=== PATIENT | female | born 1960 | race African-American/Black ===

== ENCOUNTER 2018-01-15 11:03 | Inpatient (IN) | payer OTHER ==
[2018-01-15 13:09] VITALS: BMI 21.4
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
[2018-01-15] MEDS ORDERED: MAGNESIUM CITRATE 300 ML BOTTLE PO PRN (16:52)
[2018-01-15] MEDS ORDERED: IBUPROFEN 400 MG TABLET (FP) PO PRN (16:52)
[2018-01-15] MEDS ORDERED: MENTHOL/PHENOL 1 EACH UD MM PRN (16:52)
[2018-01-15] MEDS ORDERED: MAGNESIUM HYDROX 2400MG/30ML ORAL SUSPENSION 30 ML CUP PO PRN (16:52)
[2018-01-15] MEDS ORDERED: MAG HYDROX/AL HYDROX/SIMETH 30 ML UNIT-DOSE CUP PO PRN (16:52)
[2018-01-15] MEDS ORDERED: LOPERAMIDE HCL 2 MG CAPSULE PO PRN (16:52)
[2018-01-15] MEDS ORDERED: guaiFENesin/D-METHORPHAN HB 10 ML UNIT-DOSE CUPS PO PRN (16:52)
[2018-01-15] MEDS ORDERED: chlordiazePOXIDE HCL 25 MG CAPSULE PO PRN (16:52)
[2018-01-15] MEDS ORDERED: ACETAMINOPHEN 325 MG TABLET (FP) PO PRN (16:52)
[2018-01-15] MEDS ORDERED: P-EPHED 60MG/TRIPROLIDI 2.5MG TABLET PO PRN (16:52)
[2018-01-15] MEDS ORDERED: hydrOXYzine PAMOATE 50 MG CAPSULE (FP) PO PRN (16:52)
[2018-01-15] MEDS ORDERED: chlordiazePOXIDE HCL 25 MG CAPSULE PO ONE (17:15)
[2018-01-15] MEDS ORDERED: MELATONIN 5 MG TABLETS PO PRN (22:00)
[2018-01-15] MEDS: chlordiazePOXIDE HCL 25 MG CAPSULE PO SCH (22:16)
[2018-01-15] MEDS: THIAMINE HCL 100 MG TABLET (FP) PO SCH (22:16)
[2018-01-16] MEDS: chlordiazePOXIDE HCL 25 MG CAPSULE PO SCH ×4 (06:09→22:24)
--- NOTE | 2018-01-16 08:04 | CONSULT ---
[facility] Psychiatric Consult - Data Date of interview: 01/16/18 Admission source: [facility] Identifying data: This is a 57 years old female, single mother of thre, living with family, unemployed , on PA, with no psychiatric hospitalization , with history of nicotine, alcohol, crack / cocaine dependence, MMTP 180mg per day, with alcohol withdrawal symptoms is here seeking detox. Substance Abuse History: Smoking history: Current every day smoker. Have you smoked in the past 12 months: Yes. Aproximately how many cigarettes per day: 4. Hx Chewing Tobacco Use: No. Initiated information on smoking cessation: Yes. 'Breaking Loose' booklet given: 01/15/18. - Substance & Tx. History. Hx Alcohol Use: Yes. Hx Substance Use: Yes. Substance Use Type: Alcohol, Cocaine. Hx Substance Use Treatment: Yes (Last detox [address] [facility]). - Substances Abused. Crack. Route: Smoking. Frequency: Daily. Amount used: $80. Age of first use: 32. Date of Last Use: 01/14/18. Alcohol-beer. Route: Oral. Frequency: Daily. Amount used: 5 x (22 oz.). Age of first use: 20. Date of Last Use: 01/14/18 Medical History: Denies significant medical issues Psychiatric History: Patient reports anxiety and depression history, reports taking prior to admission Seroquel 200mg po qhs for anxiety and insomnia. Denies suicidal, homicidial history Physical/Sexual Abuse/Trauma History: Denies Additional Comment: Seroquel 200mg po qhs Mental Status Exam - Mental Status Exam Alert and Oriented to: Person Cognitive Function: Fair Patient Appearance: Unkempt Mood: Apprehensive Affect: Mood Congruent Patient Behavior: Cooperative Speech Pattern: Appropriate Voice Loudness: Mildly Soft/Quiet Thought Process: Circumstantial, Goal Oriented Thought Disorder: Being Controlled Hallucinations: Denies Suicidal Ideation: Denies Homicidal Ideation: Denies Insight/Judgement: Fair Sleep: Difficulty falling asleep Appetite: Weight loss Muscle strength/Tone: Mild Hypertonicity Gait/Station: Shuffling Additional Comments: Seroquel 200mg po qhs Psychiatric Findings - Problem List ([place] 1, 2,3) (1) Drug-induced mood disorder Current Visit: Yes Status: Acute (2) Alcohol dependence with withdrawal Current Visit: Yes Status: Acute Qualifiers: Complication of substance-induced condition: uncomplicated Qualified Code(s ): F10.230 - Alcohol dependence with withdrawal, uncomplicated (3) Cocaine dependence Current Visit: Yes Status: Acute Qualifiers: Substance use status: uncomplicated Qualified Code(s): F14.20 - Cocaine dependence, uncomplicated (4) Weight loss, unintentional Current Visit: Yes Status: Acute (5) Opioid dependence on agonist therapy Current Visit: Yes Status: Chronic Comment: MMTP : [place] on methadone 180 mg, dose pending verification - Initial Treatment Plan Initial Treatment Plan: Seroquel 200mg po qhs
[2018-01-16] MEDS ORDERED: METHADONE HCL 10 MG TABLET PO SCH (09:00)
[2018-01-16] MEDS ORDERED: METHADONE HCL 40 MG DISPERSABLE TABLET ONE (10:01)
[2018-01-16] MEDS ORDERED: METHADONE HCL 10 MG TABLET ONE (10:01)
--- NOTE | 2018-01-16 10:30 | EKG ---
Test Reason : Blood Pressure : / mmHG Vent. Rate : 066 BPM Atrial Rate : 066 BPM P-R Int : 138 ms QRS Dur : 076 ms QT Int : 446 ms P-R-T Axes : 077 061 056 degrees QTc Int : 467 ms NORMAL SINUS RHYTHM NORMAL ECG NO PREVIOUS ECGS AVAILABLE Confirmed by PATRICIA GAYTAN MD ([id number]) on 01/16/2018 10:30:05 AM Referred By: Confirmed By:PATRICIA GAYTAN MD
[2018-01-16 10:47] LABS: HEMATOCRIT 37.7 % (32.4-45.2); HEMOGLOBIN 12.3 GM/dL (10.7-15.3); MCH 29.2 pg (25.7-33.7); MCHC 32.6 g/dl (32.0-36.0); MEAN CELL VOLUME 89.5 fl (80-96); MEAN PLT VOLUME 9.9 fl (7.5-11.1); PLATELET COUNT 191 K/MM3 (134-434); RBC 4.21 M/mm3 (3.60-5.2); RDW 14.9 % (11.6-15.6); WHITE BLOOD COUNT 6.2 K/mm3 (4.0-10.0)
[2018-01-16] MEDS: PRENATAL VITAMINS W/ FOLIC ACID TABLET (FP) PO SCH (10:47)
[2018-01-16] MEDS: METHADONE 160 MG, METHADONE 20 MG PO SCH (10:47)
[2018-01-16] MEDS: NICOTINE 14 MG/24 HOURS TOPICAL PATCH TD SCH (10:52)
[2018-01-16] MEDS: NICOTINE POLACRILEX 2 MG GUM BC PRN (10:53)
[2018-01-16 10:55] LABS: URINE APPEARANCE CLEAR; URINE BILIRUBIN NEGATIVE (<2.0 mg/dL); URINE COLOR YELLOW; URINE GLUCOSE (UA) NEGATIVE (NEGATIVE); URINE KETONE NEGATIVE (NEGATIVE); URINE NITRITE NEGATIVE (NEGATIVE); URINE PROTEIN NEGATIVE (NEGATIVE); URINE UROBILINOGEN NEGATIVE mg/dL (0.2-1.0)
[2018-01-16 11:20] LABS: URINE LEUK ESTERASE 1+ (NEGATIVE)
[2018-01-16 11:30] LABS: EPI CELLS FEW /HPF (FEW); URINE MUCUS RARE
[2018-01-16 11:31] LABS: CHLORIDE 104 mmol/L (98-107); POTASSIUM 3.9 mmol/L (3.5-5.1); SODIUM 142 mmol/L (136-145)
[2018-01-16 12:08] LABS: ALBUMIN 3.4 g/dl (3.4-5.0); ALK PHOS 107 U/L (45-117); ANION GAP 10 (8-16); BILIRUBIN,TOTAL 0.3 mg/dL (0.2-1.0); BLOOD UREA NITROGEN 25 mg/dL (7-18); CALCIUM 9.1 mg/dL (8.5-10.1); CO2 28 mmol/L (21-32); GLUCOSE,RANDOM 85 mg/dL (74-106); SGOT/AST 20 U/L (15-37); SGPT/ALT 20 U/L (12-78); TOT PROT 6.5 g/dl (6.4-8.2)
--- NOTE | 2018-01-16 15:19 | PN ---
S CIWA - CIWA Score Nausea/Vomitin Muscle Tremors: 3 Anxiety: 2 Agitation: 2 Paroxysmal Sweats: 1-Minimal Palms Moist Orientation: 0-Oriented Tacttile Disturbances: 1-Very Mild Itch/Numbness Auditory Disturbances: 1-Very Mild Visual Disturbances: 0-None Headache: 2-Mild CIWA-Ar Total Score: 15 S Progress Note (SOAP) Subjective: alert,irritable,anxious,interrupted sleep,tremor Objective: 01/16/18 15:17 Vital Signs Temperature 97.2 F L 01/16/18 09:42 Pulse Rate 65 01/16/18 09:42 Respiratory Rate 18 01/16/18 09:42 Blood Pressure 113/75 01/16/18 09:42 O2 Sat by Pulse Oximetry (%) 01/16/18 15:17 nsr,normal ecg qt/qtc 446/467 Laboratory Last Values WBC 6.2 K/mm3 (4.0-10.0) 01/16/18 07:30 RBC 4.21 M/mm3 (3.60-5.2) 01/16/18 07:30 Hgb 12.3 GM/dL (10.7-15.3) 01/16/18 07:30 Hct 37.7 % (32.4-45.2) 01/16/18 07:30 MCV 89.5 fl (80-96) 01/16/18 07:30 MCH 29.2 pg (25.7-33.7) 01/16/18 07:30 MCHC 32.6 g/dl (32.0-36.0) 01/16/18 07:30 RDW 14.9 % (11.6-15.6) 01/16/18 07:30 Plt Count 191 K/MM3 (134-434) 01/16/18 07:30 MPV 9.9 fl (7.5-11.1) 01/16/18 07:30 Sodium 142 mmol/L (136-145) 01/16/18 07:30 Potassium 3.9 mmol/L (3.5-5.1) 01/16/18 07:30 Chloride 104 mmol/L (98-107) 01/16/18 07:30 Carbon Dioxide 28 mmol/L (21-32) 01/16/18 07:30 Anion Gap 10 (8-16) 01/16/18 07:30 BUN 25 mg/dL (7-18) H 01/16/18 07:30 Creatinine 1.0 mg/dL (0.55-1.02) 01/16/18 07:30 Creat Clearance w eGFR 57.56 (>60) 01/16/18 07:30 Random Glucose 85 mg/dL (74-106) 01/16/18 07:30 Calcium 9.1 mg/dL (8.5-10.1) 01/16/18 07:30 Total Bilirubin 0.3 mg/dL (0.2-1.0) 01/16/18 07:30 AST 20 U/L (15-37) 01/16/18 07:30 ALT 20 U/L (12-78) 01/16/18 07:30 Alkaline Phosphatase 107 U/L (45-117) 01/16/18 07:30 Total Protein 6.5 g/dl (6.4-8.2) 01/16/18 07:30 Albumin 3.4 g/dl (3.4-5.0) 01/16/18 07:30 Urine Color Yellow 01/16/18 08:00 Urine Appearance Clear 01/16/18 08:00 Urine pH 5.0 (5.0-8.0) 01/16/18 08:00 Ur Specific [place] 1.025 (1.001-1.035) 01/16/18 08:00 Urine Protein Negative (NEGATIVE) 01/16/18 08:00 Urine Glucose (UA) Negative (NEGATIVE) 01/16/18 08:00 Urine Ketones Negative (NEGATIVE) 01/16/18 08:00 Urine Blood Negative (NEGATIVE) 01/16/18 08:00 Urine Nitrite Negative (NEGATIVE) 01/16/18 08:00 Urine Bilirubin Negative (<2.0 mg/dL) 01/16/18 08:00 Urine Urobilinogen Negative mg/dL (0.2-1.0) 01/16/18 08:00 Ur Leukocyte Esterase 1+ (NEGATIVE) H 01/16/18 08:00 Urine WBC (Auto) <1 /hpf (3-5) 01/16/18 08:00 Urine RBC (Auto) 8 /hpf (0-3) 01/16/18 08:00 Ur Epithelial Cells Few /HPF (FEW) 01/16/18 08:00 Urine Mucus Rare 01/16/18 08:00 Assessment: 01/16/18 15:19 withdrawal symptom Plan: continue detox
[2018-01-16] MEDS: QUEtiapine FUMARATE 200 MG TABLET PO SCH (22:23)
[2018-01-16] MEDS: THIAMINE HCL 100 MG TABLET (FP) PO SCH (22:23)
[2018-01-17] MEDS ORDERED: METHADONE HCL 40 MG DISPERSABLE TABLET ONE (04:59)
[2018-01-17] MEDS ORDERED: METHADONE HCL 10 MG TABLET ONE (05:00)
[2018-01-17] MEDS: chlordiazePOXIDE HCL 25 MG CAPSULE PO SCH ×3 (06:00→17:43)
[2018-01-17] MEDS: METHADONE 160 MG, METHADONE 20 MG PO SCH (06:00)
[2018-01-17] MEDS: PRENATAL VITAMINS W/ FOLIC ACID TABLET (FP) PO SCH (10:36)
[2018-01-17] MEDS: NICOTINE 14 MG/24 HOURS TOPICAL PATCH TD SCH (10:37)
--- NOTE | 2018-01-17 15:47 | PN ---
S CIWA - CIWA Score Nausea/Vomitin-Mild Nausea/No Vomiting Muscle Tremors: None Anxiety: 0-No Anxiety, at Ease Agitation: 0-Normal Activity Paroxysmal Sweats: No Perspiration Orientation: 0-Oriented Tacttile Disturbances: 0-None Auditory Disturbances: 0-None Visual Disturbances: 0-None Headache: 0-None Present CIWA-Ar Total Score: 1 [facility] Progress Note (SOAP) Subjective: pt sleeping without complaints Objective: 01/17/18 15:47 Vital Signs - 24 hr 01/16/18 01/16/18 01/17/18 19:03 22:41 03:30 Temperature 97.9 F 97.7 F Pulse Rate 71 78 Respiratory 18 16 18 Rate Blood Pressure 116/71 119/88 01/17/18 01/17/18 01/17/18 07:31 10:46 14:06 Temperature 97.3 F L 97.5 F L 97.5 F L Pulse Rate 81 85 85 Respiratory 18 16 18 Rate Blood Pressure 108/75 154/71 118/69 Breath Alcohol Content Breath Alcohol Content 0 Laboratory Tests 01/16/18 01/16/18 01/16/18 07:30 07:30 07:30 WBC 6.2 RBC 4.21 Hgb 12.3 Hct 37.7 MCV 89.5 MCH 29.2 MCHC 32.6 RDW 14.9 Plt Count 191 MPV 9.9 Sodium 142 Potassium 3.9 Chloride 104 Carbon Dioxide 28 Anion Gap 10 BUN 25 H Creatinine 1.0 Creat Clearance w eGFR 57.56 Random Glucose 85 Calcium 9.1 Total Bilirubin 0.3 AST 20 ALT 20 Alkaline Phosphatase 107 Total Protein 6.5 Albumin 3.4 Urine Color Urine Appearance Urine pH Ur Specific [place] Urine Protein Urine Glucose (UA) Urine Ketones Urine Blood Urine Nitrite Urine Bilirubin Urine Urobilinogen Ur Leukocyte Esterase Urine WBC (Auto) Urine RBC (Auto) Ur Epithelial Cells Urine Mucus RPR Titer Nonreactive 01/16/18 08:00 WBC RBC Hgb Hct MCV MCH MCHC RDW Plt Count MPV Sodium Potassium Chloride Carbon Dioxide Anion Gap BUN Creatinine Creat Clearance w eGFR Random Glucose Calcium Total Bilirubin AST ALT Alkaline Phosphatase Total Protein Albumin Urine Color Yellow Urine Appearance Clear Urine pH 5.0 Ur Specific [place] 1.025 Urine Protein Negative Urine Glucose (UA) Negative Urine Ketones Negative Urine Blood Negative Urine Nitrite Negative Urine Bilirubin Negative Urine Urobilinogen Negative Ur Leukocyte Esterase 1+ H Urine WBC (Auto) <1 Urine RBC (Auto) 8 Ur Epithelial Cells Few Urine Mucus Rare RPR Titer labs and VS WNL Assessment: 01/17/18 15:48 57 yo female with hx of nicotine, alcohol, crack / cocaine dependence is here for detox. Plan: continue detox protocol
[2018-01-17] MEDS: NICOTINE POLACRILEX 2 MG GUM BC PRN (19:46)
[2018-01-17] MEDS: THIAMINE HCL 100 MG TABLET (FP) PO SCH (22:14)
[2018-01-17] MEDS: QUEtiapine FUMARATE 200 MG TABLET PO SCH (22:14)
[2018-01-17] MEDS: chlordiazePOXIDE 5 MG CAPSULE PO SCH (22:14)
[2018-01-18] MEDS ORDERED: METHADONE HCL 40 MG DISPERSABLE TABLET ONE (05:26)
[2018-01-18] MEDS ORDERED: METHADONE HCL 10 MG TABLET ONE (05:26)
[2018-01-18] MEDS: chlordiazePOXIDE 5 MG CAPSULE PO SCH ×3 (06:11→17:44)
[2018-01-18] MEDS: METHADONE 160 MG, METHADONE 20 MG PO SCH (06:12)
[2018-01-18] MEDS: PRENATAL VITAMINS W/ FOLIC ACID TABLET (FP) PO SCH (10:59)
[2018-01-18] MEDS: NICOTINE 14 MG/24 HOURS TOPICAL PATCH TD SCH (11:00)
--- NOTE | 2018-01-18 15:38 | PN ---
[facility] Progress Note (SOAP) Subjective: pt sleeping in bed, aroused and pt states feeling fine Objective: 01/18/18 15:37 Vital Signs - 24 hr 01/17/18 01/17/18 01/18/18 17:55 22:53 06:39 Temperature 97.7 F 98.2 F 95.9 F L Pulse Rate 86 85 90 Respiratory 18 18 16 Rate Blood Pressure 120/74 126/77 136/68 01/18/18 10:00 Temperature 97.7 F Pulse Rate 74 Respiratory 18 Rate Blood Pressure 116/69 Laboratory Tests 01/16/18 01/16/18 01/16/18 07:30 07:30 07:30 WBC 6.2 RBC 4.21 Hgb 12.3 Hct 37.7 MCV 89.5 MCH 29.2 MCHC 32.6 RDW 14.9 Plt Count 191 MPV 9.9 Sodium 142 Potassium 3.9 Chloride 104 Carbon Dioxide 28 Anion Gap 10 BUN 25 H Creatinine 1.0 Creat Clearance w eGFR 57.56 Random Glucose 85 Calcium 9.1 Total Bilirubin 0.3 AST 20 ALT 20 Alkaline Phosphatase 107 Total Protein 6.5 Albumin 3.4 Urine Color Urine Appearance Urine pH Ur Specific [place] Urine Protein Urine Glucose (UA) Urine Ketones Urine Blood Urine Nitrite Urine Bilirubin Urine Urobilinogen Ur Leukocyte Esterase Urine WBC (Auto) Urine RBC (Auto) Ur Epithelial Cells Urine Mucus RPR Titer Nonreactive 01/16/18 08:00 WBC RBC Hgb Hct MCV MCH MCHC RDW Plt Count MPV Sodium Potassium Chloride Carbon Dioxide Anion Gap BUN Creatinine Creat Clearance w eGFR Random Glucose Calcium Total Bilirubin AST ALT Alkaline Phosphatase Total Protein Albumin Urine Color Yellow Urine Appearance Clear Urine pH 5.0 Ur Specific [place] 1.025 Urine Protein Negative Urine Glucose (UA) Negative Urine Ketones Negative Urine Blood Negative Urine Nitrite Negative Urine Bilirubin Negative Urine Urobilinogen Negative Ur Leukocyte Esterase 1+ H Urine WBC (Auto) <1 Urine RBC (Auto) 8 Ur Epithelial Cells Few Urine Mucus Rare RPR Titer low GFR nl VS Assessment: 01/18/18 15:38 57 yo female with hx of nicotine, alcohol, crack / cocaine dependence is here for alcohol detox Plan: continue detox protocol
[2018-01-18] MEDS: QUEtiapine FUMARATE 200 MG TABLET PO SCH (22:19)
[2018-01-18] MEDS: chlordiazePOXIDE HCL 10 MG CAPSULE PO SCH (22:19)
[2018-01-18] MEDS: THIAMINE HCL 100 MG TABLET (FP) PO SCH (22:19)
[2018-01-19] MEDS ORDERED: METHADONE HCL 40 MG DISPERSABLE TABLET ONE (05:21)
[2018-01-19] MEDS ORDERED: METHADONE HCL 10 MG TABLET ONE (05:22)
[2018-01-19] MEDS: METHADONE 160 MG, METHADONE 20 MG PO SCH (06:07)
[2018-01-19] MEDS: chlordiazePOXIDE HCL 10 MG CAPSULE PO SCH ×2 (06:08→10:58)
[2018-01-19 09:10] VITALS: BP 114/78; PULSE 83; TEMP 98.1
[2018-01-19] MEDS: PRENATAL VITAMINS W/ FOLIC ACID TABLET (FP) PO SCH (10:57)
[2018-01-19] MEDS: NICOTINE 14 MG/24 HOURS TOPICAL PATCH TD SCH (10:58)
--- NOTE | 2018-01-19 11:09 | PN ---
S Progress Note (SOAP) Subjective: Denies any complaints Objective: 01/19/18 10:57 A & O x 3 In no acute distress Vital Signs Temperature 98.1 F 01/19/18 09:08 Pulse Rate 83 01/19/18 09:08 Respiratory Rate 18 01/19/18 09:08 Blood Pressure 114/78 01/19/18 09:08 O2 Sat by Pulse Oximetry (%) Assessment: 01/19/18 11:09 detox successfully completed Plan: For discharge
--- NOTE | 2018-01-19 11:21 | DS ---
[facility] Detox Discharge Summary Admission Date: 01/15/18 Discharge Date: 01/19/18 - History Additional Comments: Pt discharged in stable condition. Pt going to her mom's, will call for rehab bed on sunday Pertinent Past History: withdrawal sx - Physical Exam Results Vital Signs: Vital Signs Temperature 98.1 F 01/19/18 09:08 Pulse Rate 83 01/19/18 09:08 Respiratory Rate 18 01/19/18 09:08 Blood Pressure 114/78 01/19/18 09:08 O2 Sat by Pulse Oximetry (%) Pertinent Admission Physical Exam Findings: withdrawal sx - Treatment Hospital Course: Detox Protocol Followed, Detoxed Safely, Responded well, Discharged Condition Good - Medication Discharge Medications: Ambulatory Orders Cyproheptadine HCl 4 mg PO TID 01/15/18 Quetiapine Fumarate [Seroquel -] 200 mg PO HS 01/15/18 Quetiapine Fumarate [Seroquel -] 200 mg PO HS #30 tablet 01/16/18 - Diagnosis (1) Alcohol dependence with withdrawal Current Visit: Yes Status: Acute Qualifiers: Complication of substance-induced condition: uncomplicated Qualified Code(s ): F10.230 - Alcohol dependence with withdrawal, uncomplicated (2) Cocaine dependence Current Visit: Yes Status: Acute Qualifiers: Substance use status: uncomplicated Qualified Code(s): F14.20 - Cocaine dependence, uncomplicated (3) Drug-induced mood disorder Current Visit: Yes Status: Acute (4) Weight loss Current Visit: Yes Status: Acute (5) Weight loss, unintentional Current Visit: Yes Status: Acute (6) Opioid dependence on agonist therapy Current Visit: Yes Status: Chronic - AMA Did Patient Leave Against Medical Advice: No
--- NOTE | 2018-01-19 12:51 | DS ---
[facility] Detox Discharge Summary Admission Date: 01/15/18 Discharge Date: 01/19/18 - History Additional Comments: pt for discharge Pt states she will go to her mom's today and will return on sunday for rehab at [facility] - Physical Exam Results Vital Signs: Vital Signs Temperature 98.1 F 01/19/18 09:08 Pulse Rate 83 01/19/18 09:08 Respiratory Rate 18 01/19/18 09:08 Blood Pressure 114/78 01/19/18 09:08 O2 Sat by Pulse Oximetry (%) Pertinent Admission Physical Exam Findings: withdrawal sx - Treatment Hospital Course: Detox Protocol Followed, Detoxed Safely, Responded well, Discharged Condition Good - Medication Discharge Medications: Ambulatory Orders Cyproheptadine HCl 4 mg PO TID 01/15/18 Quetiapine Fumarate [Seroquel -] 200 mg PO HS 01/15/18 Quetiapine Fumarate [Seroquel -] 200 mg PO HS #30 tablet 01/16/18 - Diagnosis (1) Alcohol dependence with withdrawal Current Visit: Yes Status: Acute Qualifiers: Complication of substance-induced condition: uncomplicated Qualified Code(s ): F10.230 - Alcohol dependence with withdrawal, uncomplicated (2) Cocaine dependence Current Visit: Yes Status: Acute Qualifiers: Substance use status: uncomplicated Qualified Code(s): F14.20 - Cocaine dependence, uncomplicated (3) Drug-induced mood disorder Current Visit: Yes Status: Chronic (4) Weight loss Current Visit: Yes Status: Acute (5) Weight loss, unintentional Current Visit: Yes Status: Acute (6) Opioid dependence on agonist therapy Current Visit: Yes Status: Acute - AMA Did Patient Leave Against Medical Advice: No
== END 2018-01-19 15:28 | disposition home or self-care (01) | DRG 773 ==
LOC: YASAS 11:03 → Y6N 16:09
PROVIDERS: ADMIT Surgery; ATTEND Surgery
PROC: HZ2ZZZZ Detoxification Services for Substance Abuse Treatment (ICD-10-PCS; principal; 2018-01-15)
DX: F10.230 Alcohol dependence with withdrawal, uncomplicated (principal); F11.20 Opioid dependence, uncomplicated; F14.20 Cocaine dependence, uncomplicated; F19.24 Other psychoactive substance dependence with psychoactive substance-induced mood disorder; R63.4 Abnormal weight loss
CPT/HCPCS: 36415; 80053; 81003; 81015; 85027; 86593; 93005; 93010